=== PATIENT | male | born 1975 | race Caucasian/White ===

== ENCOUNTER 2016-11-18 22:27 | Emergency (ER) | payer OTHER ==
[~2016-11-18] VITALS: Ht 177.8 cm; Wt 90.7 kg
[2016-11-18] MEDS ORDERED: ANTIDEPRESSANT (22:39)
[2016-11-18] MEDS ORDERED: IBUPROFEN 200200 M1 PO (22:40)
[2016-11-19] MEDS ORDERED: PRILOSEC OTC20 MG PO (01:02)
[2016-11-19 01:46] VITALS: BP 132/76
== END 2016-11-19 01:05 | disposition home or self-care (01) ==
LOC: ER 22:27
DX: R05 Cough (principal)